=== PATIENT | male | born 1950 | race Caucasian/White ===

== ENCOUNTER → 2016-10-24 | Outpatient (CLI) | payer BC ==
[~2016-10-24] MED LIST: CIPR500T89 PO; OXYCO5TA PO; TYLE325T5 PO; no medications
== END ==
LOC: M WUC 16:07
PROVIDERS: ATTEND Urology
DX: C61 Malignant neoplasm of prostate (principal)

== ENCOUNTER → 2017-02-09 | Outpatient (CLI) | payer BC ==
[~2017-02-09] MED LIST changes: +OXYC-517 PO; -OXYCO5TA PO
== END ==
LOC: M WUC 10:27
PROVIDERS: ATTEND Urology
DX: R97.21 Rising PSA following treatment for malignant neoplasm of prostate (principal)

== ENCOUNTER → 2017-02-24 | Outpatient (CLI) | payer BC ==
--- NOTE | 2017-02-27 08:22 | RADONC ---
RADIATION ONCOLOGY CONSULTATION NOTE DATE: 02/24/2017 CHART NUMBER: [id number]. DIAGNOSIS: Prostate state cancer. STAGE: III, [id number]. ECOG PERFORMANCE STATUS: Zero. CONSULTATION NOTE: Mr. Chaudhry is a very pleasant, 66-year-old white male with the diagnosis of a stage III, [id number] poorly differentiated Angelique score 9 (4-4) adenocarcinoma of the prostate who is presenting to us today for consultation regarding the possibilities of postoperative radiation therapy for biochemical recurrence. HISTORY OF PRESENT ILLNESS: The patient was in his usual state of health but was found to have an elevated PSA, which reached a level of 22.05 on 06/29/2015. On 09/04/2015, the patient underwent robotic-assisted transperitoneal radical prostatectomy. Pathology revealed a poorly differentiated, a [place] score 8 (4-4) adenocarcinoma of the prostate. The tumor extensively involved the left prostate and also the superior half of the right prostate. It extended into the basal muscles and diffusely involved the bilateral basal resection margins as well as the base of the bilateral seminal vesicles. Several lymph nodes were resected from both left and the right pelvis and were negative for metastatic disease. The patient's tumor was noted to have focal areas of Angelique score 5 plus 3 pattern. Staging at that time was a stage III, [id number]. The patient was observed and initially had a PSA of 0.06 on 01/08/2016. This has been slowly rising, and on 02/09/2017 reached a level of 0.26. He is now being referred for consideration of postoperative radiation therapy. PAST MEDICAL HISTORY: The patient's past medical history is noncontributory. He has been in generally good health. ALLERGIES: The patient has NO KNOWN DRUG ALLERGIES. SOCIAL HISTORY: The patient does not smoke cigarettes nor abuse alcohol. FAMILY HISTORY: The patient's family history is positive for a brother with prostate cancer. REVIEW OF SYSTEMS: The patient's review of systems is noncontributory. Denies nausea, vomiting, fevers, chills, night sweats, diplopia, headaches, anxiety or depression, anorexia, weight loss, visual disturbances, chest pain, urinary or bowel difficulties, bone pain, or neurological problems. PHYSICAL EXAMINATION: The patient is a well-developed, well-nourished male in no acute distress. HEENT exam is normocephalic, atraumatic. Extraocular movements are intact. There is no palpable cervical, supraclavicular, infraclavicular, axillary, or inguinal lymphadenopathy present. Lungs are clear to auscultation and percussion. Heart has a regular rate and rhythm. Abdomen is benign with no hepatosplenomegaly, masses, or tenderness. Rectal examination reveals a normal anal sphincter tone. His prostate bed is smooth with no evidence of nodularity. Skeletal examination reveals no tenderness to pressure or percussion of the bony skeleton. Extremities reveal no clubbing, cyanosis, or edema. Neurologic exam is grossly intact, as is the remainder of the physical examination. IMAGING: I have personally reviewed the CT scan done 08/13/2015, which showed no evidence of lymphadenopathy. In addition, I have reviewed the bone scan done 08/13/2015, which showed no evidence of metastatic disease. ASSESSMENT: Clearly the patient is a candidate for external beam radiation therapy and I have so informed him. I have discussed with the patient in detail the potential benefits as well as possible acute and chronic sequelae of external beam radiation therapy. We discussed logistics of treatment planning, simulation and subsequent fractionated daily radiation treatments. I have scheduled the patient for the next available simulation slot and radiation treatments will begin subsequently. Thank you for allowing us to participate in the care of this very pleasant gentleman. If I could be of any further assistance or provide you with any information, please free to contact me anytime. As always, warm regards. cc: James Christina Jr, MD Alejandro Rodriguez, MD
== END ==
LOC: M ONCR 09:55
PROVIDERS: ATTEND Radiology Radiation Oncology
DX: C61 Malignant neoplasm of prostate (principal)

== ENCOUNTER 2017-03-05 11:39 | Outpatient (RCR) | payer BC ==
--- NOTE | 2017-03-17 10:16 | RADONC ---
RADIATION ONCOLOGY PROGRESS NOTE: DATE: 03/17/2017 CHART NO: [id number] Mr. Chaudhry underwent his first fraction of 180 cGy today to his prostate bed and tolerated it quite well. The patient has no new complaints prior to reinitiation of radiation. REVIEW OF SYSTEMS: The patient's review of systems is noncontributory. He denies nausea, vomiting, fevers, chills, night sweats, diplopia, headaches, anxiety or depression, anorexia, weight loss, visual disturbances, chest pain, urinary or bowel difficulties, bone pain, or neurological problems. PHYSICAL EXAMINATION: The patient's skin clearly shows no evidence of radiation change at this time. The remainder of his physical exam remains unchanged. Mr. Chaudhry tolerated his first fraction of radiation quite well with no difficulties. Radiation will continue as scheduled.
== END 2017-03-18 ==
LOC: M ONCR 11:39
PROVIDERS: ATTEND Radiology Radiation Oncology
DX: C61 Malignant neoplasm of prostate (principal)

== ENCOUNTER → 2017-03-05 | Outpatient (CLI) | payer BC ==
[2017-03-05 11:37] LABS: MEAN CORPUSCULAR HEMOGLOBIN 33.7 pg (27.0-33.0); MEAN CORPUSCULAR HGB CONC 35.3 g/dl (32.0-36.5); MEAN CORPUSCULAR VOLUME 95.6 fl (80.0-96.0); RED CELL DISTRIBUTION WIDTH 11.9 % (11.5-14.5); WHITE BLOOD COUNT 5.7 K/mm3 (4.0-10.0)
== END ==
LOC: M RAD 10:26
PROVIDERS: ATTEND Radiology Radiation Oncology
DX: C61 Malignant neoplasm of prostate (principal)

== ENCOUNTER 2017-03-19 11:08 | Outpatient (RCR) | payer BC ==
[~2017-03-19 11:08] MED LIST changes: +CIPR-249 PO; -CIPR500T89 PO
--- NOTE | 2017-03-24 13:29 | RADONC ---
RADIATION ONCOLOGY PROGRESS NOTE DATE: 03/24/2017 CHART NUMBER: [id number] Mr. Chaudhry is presently at a dose of 1080 cGy to his prostate bed and is tolerating treatments quite well at this point with no complaints related to his radiation therapy. He is having no urinary or bowel difficulties and no bone pain. The patient's review of systems is noncontributory. He denies nausea, vomiting, fevers, chills, night sweats, diplopia, headaches, anxiety or depression, anorexia, weight loss, visual disturbances, chest pain, urinary or bowel difficulties, bone pain, or neurological problems. PHYSICAL EXAMINATION: The patient's skin is in good condition with no evidence of radiation change present. There is no moist or dry desquamation. The remainder of his physical exam remains unchanged. Mr. Chaudhry is tolerating treatments quite well and radiation will continue as scheduled.
--- NOTE | 2017-03-30 09:03 | RADONC ---
RADIATION ONCOLOGY PROGRESS NOTE: DATE: 03/30/2017 CHART NUMBER: [id number]. PROGRESS NOTE: Mr. Chaudhry is presently at a dose of 1800 cGy to his prostate bed and is tolerating treatments quite well at this point with no complaints related to his radiation therapy. He is having no urinary or bowel difficulties and no bone pain. REVIEW OF SYSTEMS: The patient's review of systems is noncontributory. Denies nausea, vomiting, fevers, chills, night sweats, diplopia, headaches, anxiety or depression, anorexia, weight loss, visual disturbances, chest pain, urinary or bowel difficulties, bone pain, or neurological problems. PHYSICAL EXAMINATION: The patient's skin is in excellent condition with no evidence of radiation change present. There is no moist or dry desquamation. The remainder of his physical exam remains unchanged. Mr. Chaudhry is tolerating treatments quite well and radiation will continue as scheduled.
--- NOTE | 2017-04-06 09:31 | RADONC ---
RADIATION ONCOLOGY PROGRESS NOTE DATE: 04/06/2017 CHART NUMBER: [id number] Mr. Chaudhry is presently at a dose of 2700 cGy to his prostate bed and is tolerating treatments quite well at this point with no complaints related to his radiation therapy. He is having no urinary or bowel difficulties and no bone pain. The patient's review of systems is noncontributory. He denies nausea, vomiting, fevers, chills, night sweats, diplopia, headaches, anxiety or depression, anorexia, weight loss, visual disturbances, chest pain, urinary or bowel difficulties, bone pain, or neurological problems. PHYSICAL EXAMINATION: The patient's skin is in good condition with no evidence of radiation change present. There is no moist or dry desquamation. The remainder of his physical exam remains unchanged. Mr. Chaudhry is tolerating treatments quite well and radiation will continue as scheduled.
--- NOTE | 2017-04-13 12:15 | RADONC ---
RADIATION ONCOLOGY PROGRESS NOTE: DATE: 04/13/2017 CHART NUMBER: [id number]. PROGRESS NOTE: Mr. Chaudhry is presently at a dose of 3600 cGy to his prostate bed and is tolerating treatments quite well at this point with no complaints related to his radiation therapy. He is having no urinary or bowel difficulties and no bone pain. REVIEW OF SYSTEMS: The patient's review of systems is noncontributory. Denies nausea, vomiting, fevers, chills, night sweats, diplopia, headaches, anxiety or depression, anorexia, weight loss, visual disturbances, chest pain, urinary or bowel difficulties, bone pain, or neurological problems. PHYSICAL EXAMINATION: The patient's skin is in good condition with no evidence of radiation change present. There is no moist or dry desquamation. The remainder of his physical exam remains unchanged. Mr. Chaudhry is tolerating treatments quite well and radiation will continue as scheduled.
== END 2017-04-17 ==
LOC: M ONCR 11:08
PROVIDERS: ATTEND Radiology Radiation Oncology
DX: C61 Malignant neoplasm of prostate (principal)

== ENCOUNTER 2017-04-22 10:03 | Outpatient (RCR) | payer BC ==
--- NOTE | 2017-04-24 10:42 | RADONC ---
RADIATION ONCOLOGY PROGRESS NOTE DATE: 04/22/2017 CHART NUMBER: [id number]. Mr. Chaudhry is presently a dose of 4500 centigrade to his prostate bed and is tolerating treatments quite well at this point with no complaints related to his radiation therapy. He is having no significant urinary or bowel difficulties. No bone pain. REVIEW OF SYSTEMS: The patient's review of systems is noncontributory. Denies nausea, vomiting, fevers, chills, night sweats, diplopia, headaches, anxiety or depression, anorexia, weight loss, visual disturbances, chest pain, urinary or bowel difficulties, bone pain, or neurological problems. PHYSICAL EXAMINATION: The patient's skin is in good condition with no evidence of moist or dry desquamation. The remainder of his physical exam remains unchanged. Mr. Chaudhry is tolerating treatments quite well and radiation will continue as scheduled.
--- NOTE | 2017-04-27 09:02 | RADONC ---
RADIATION ONCOLOGY PROGRESS NOTE DATE: 04/27/2017 CHART NUMBER: [id number] Mr. Chaudhry is presently at a dose of 5040 centigrade to his prostate bed and is tolerating treatments quite well at this point with no complaints related to his radiation therapy. He is having no urinary or bowel difficulties. No bone pain. REVIEW OF SYSTEMS: The patient's review of systems is noncontributory. Denies nausea, vomiting, fevers, chills, night sweats, diplopia, headaches, anxiety or depression, anorexia, weight loss, visual disturbances, chest pain, urinary or bowel difficulties, bone pain, or neurological problems. PHYSICAL EXAMINATION: The patient's skin is in excellent condition with no evidence of moist or dry desquamation. The remainder of his physical exam remains unchanged. Radiation is presently well tolerated and will continue as scheduled.
--- NOTE | 2017-05-04 08:45 | RADONC ---
RADIATION ONCOLOGY PROGRESS NOTE DATE: 05/04/2017 CHART NUMBER: [id number]. Mr. Chaudhry is presently at a dose of 5940 centigrade to his prostate bed and is tolerating treatments quite well at this point with no complaints related to his radiation therapy. He is having no urinary or bowel difficulties and no bone pain. REVIEW OF SYSTEMS: The patient's review of systems is noncontributory. Denies nausea, vomiting, fevers, chills, night sweats, diplopia, headaches, anxiety or depression, anorexia, weight loss, visual disturbances, chest pain, urinary or bowel difficulties, bone pain, or neurological problems. PHYSICAL EXAMINATION: The patient's skin is in good condition with no evidence of moist or dry desquamation. The remainder of his physical exam remains unchanged. Mr. Chaudhry is tolerating his treatments quite well and radiation will continue as scheduled.
--- NOTE | 2017-05-08 10:42 | RADONC ---
RADIATION ONCOLOGY TREATMENT SUMMARY: DATE: 05/07/2017 CHART NUMBER: [id number]. DIAGNOSIS: Prostate cancer. STAGE: III, [id number]. ECOG PERFORMANCE STATUS: Zero. TREATMENT SUMMARY: Mr. Chaudhry is a very pleasant, 66-year-old white male with the diagnosis of a stage III, [id number] poorly differentiated [place] score 8 (4-4) adenocarcinoma of the prostate who presented to us status post prostatectomy with biochemical recurrence for consideration of postoperative radiation therapy. We treated the patient to his prostate bed for a dose of 6660 cGy delivered in 37 fractions of 180 cGy each over 52 elapsed days, from 03/17/2017 through 05/08/2017. The patient's prostate bed was treated on the linear accelerator utilizing an 18 MV photon beam. We initially treated a larger area to a dose of 4500 cGy and subsequently coned down for the final 2160 cGy once again in order to bring the prostate bed to a total dose of 6660 cGy. Mr. Chaudhry tolerated his treatments quite well and was able complete therapy as prescribed without interruption. I have scheduled the patient to see me again in 1 month for further followup. He will also continue to be followed by his other physicians as well. cc: James Christina Jr, MD Alejandro Rodriguez, MD
== END 2017-05-18 ==
LOC: M ONCR 10:03
PROVIDERS: ATTEND Radiology Radiation Oncology
DX: C61 Malignant neoplasm of prostate (principal)

== ENCOUNTER → 2017-06-04 | Outpatient (CLI) | payer BC | LOC: M WUC 16:02 | PROVIDERS: ATTEND Urology | DX: C61 Malignant neoplasm of prostate (principal) ==

== ENCOUNTER → 2017-06-17 | Outpatient (CLI) | payer BC ==
--- NOTE | 2017-06-17 12:16 | RADONC ---
RADIATION ONCOLOGY FOLLOWUP NOTE DATE: 06/17/2017 CHART NUMBER: [id number] DIAGNOSIS: Prostate cancer stage III, [id number]. ECOG PERFORMANCE STATUS: 0. FOLLOWUP NOTE: Mr. Valenzuela is a very pleasant 67-year-old white male with the diagnosis a stage III, [id number], poorly differentiated [place] score 8 (4-4) adenocarcinoma of the prostate who is presenting to us today for routine followup visit 1 month post completion of external beam radiation therapy. The patient presents today reporting that he is doing quite well with no complaints at this time related to his radiation therapy or disease. He has no urinary or bowel difficulties. No bone pain. REVIEW OF SYSTEMS: The patient's review of systems is noncontributory. Denies nausea, vomiting, fevers, chills, night sweats, diplopia, headaches, anxiety or depression, anorexia, weight loss, visual disturbances, chest pain, urinary or bowel difficulties, bone pain, or neurological problems. PHYSICAL EXAMINATION: The patient is a well-developed, well-nourished male in no acute distress. HEENT exam is normocephalic, atraumatic. Extraocular movements are intact. There is no palpable cervical, supraclavicular, infraclavicular, axillary, or inguinal lymphadenopathy present. Lungs are clear to auscultation and percussion. Heart has a regular rate and rhythm. Abdomen is benign with no hepatosplenomegaly, masses, or tenderness. Rectal examination reveals a normal anal sphincter tone. His prostate bed is smooth without evidence of nodularity or recurrent disease. Skeletal examination reveals no tenderness to pressure or percussion of the bony skeleton. Extremities reveal no clubbing, cyanosis, or edema. Neurologic exam is grossly intact, as is the remainder of the physical examination. ASSESSMENT: The patient is clinically PATRICE at this time and will be seen by us again in 1 month for further followup. He will also continue to be followed by his other physicians as well. cc: James Christina Jr, MD Alejandro Rodriguez, MD
== END ==
LOC: M ONCR 11:34
PROVIDERS: ATTEND Radiology Radiation Oncology
DX: C61 Malignant neoplasm of prostate (principal)

== ENCOUNTER → 2017-09-11 | Outpatient (CLI) | payer BC | LOC: M WUC 09:30 | PROVIDERS: ATTEND Urology | DX: Z85.46 Personal history of malignant neoplasm of prostate (principal) ==

== ENCOUNTER → 2018-03-05 | Outpatient (CLI) | payer MEDICARE ==
[2018-03-05 17:01] LABS: PROSTATIC SPECIFIC AG MONITOR < 0.01 NG/ML (< 4.0)
== END ==
LOC: M WUC 14:00
DX: C61 Malignant neoplasm of prostate (principal)
CPT/HCPCS: 84153

== ENCOUNTER → 2018-03-10 | Outpatient (CLI) | payer MEDICARE | LOC: M ONCR 10:40 | DX: C61 Malignant neoplasm of prostate (principal) | CPT/HCPCS: G0463 ==

== ENCOUNTER → 2018-09-06 | Outpatient (CLI) | payer MEDICARE ==
[2018-09-06 13:26] LABS: PROSTATIC SPECIFIC AG MONITOR < 0.0 NG/ML (< 4.0)
== END ==
LOC: M WUC 10:34
DX: Z85.46 Personal history of malignant neoplasm of prostate (principal)
CPT/HCPCS: 84153

== ENCOUNTER → 2018-09-08 | Outpatient (CLI) | payer MEDICARE | LOC: M ONCR 09:27 | DX: C61 Malignant neoplasm of prostate (principal) | CPT/HCPCS: G0463 ==

== ENCOUNTER → 2019-03-08 | Outpatient (CLI) | payer MEDICARE | LOC: M WUC 10:25 | PROVIDERS: ATTEND Nurse Practitioner Women's Health | DX: Z85.46 Personal history of malignant neoplasm of prostate (principal) ==

== ENCOUNTER → 2019-09-13 | Outpatient (CLI) | payer MEDICARE | LOC: M WUC 09:11 | PROVIDERS: ATTEND Nurse Practitioner Women's Health | DX: Z85.46 Personal history of malignant neoplasm of prostate (principal) ==

== ENCOUNTER → 2020-03-19 | Outpatient (CLI) | payer MEDICARE ==
[~2020-03-19] MED LIST changes: +PRIM50TA6 PO
== END ==
LOC: M WUC 09:26
PROVIDERS: ATTEND Nurse Practitioner Women's Health
DX: Z85.46 Personal history of malignant neoplasm of prostate (principal)

== ENCOUNTER → 2020-03-23 | Outpatient (REF) | payer MEDICARE ==
[2020-03-23 19:04] LABS: AMORPHOUS SEDIMENT LARGE (NEGATIVE); APPEARANCE, URINE TURBID (CLEAR); BACTERIA, URINE AUTO NEGATIVE (NEGATIVE); BILIRUBIN, URINE AUTO NEGATIVE (NEGATIVE); BLOOD, URINE BLOOD NEGATIVE (NEGATIVE); COLOR, URINE AMBER (YELLOW); GLUCOSE, URINE (UA) AUTO NEGATIVE (NEGATIVE); KETONE, URINE AUTO NEGATIVE (NEGATIVE); LEUKOCYTE ESTERASE, URINE AUTO NEGATIVE (NEGATIVE); NITRITE, URINE AUTO NEGATIVE (NEGATIVE); PROTEIN, URINE AUTO NEGATIVE (NEGATIVE); RBC, URINE AUTO 2 /HPF (0-3); SPECIFIC GRAVITY URINE AUTO 1.025 (1.002-1.035); SQUAMOUS EPITHELIAL CELL UR AU 0 /HPF (0-6); UROBILINOGEN, URINE AUTO 0.2 mg/dL (0.0-2.0); WBC, URINE AUTO 2 /HPF (0-3)
== END ==
LOC: M SMT 18:05
PROVIDERS: ATTEND Nurse Practitioner Women's Health
DX: R33.9 Retention of urine, unspecified (principal)
CPT/HCPCS: 51798; 81001; 87086; G0463

== ENCOUNTER 2020-03-25 07:08 | Emergency (ER) | payer MEDICARE ==
[~2020-03-25] VITALS: Ht 172.7 cm; Wt 90.7 kg
[~2020-03-25 07:08] MED LIST changes: -PRIM50TA6 PO
[2020-03-25] MEDS ORDERED: PRIM50TA6 PO (07:17)
[2020-03-25] MEDS ORDERED: LIDOCAINE 2% 5ML JELLY UROJET TOP ONE (08:00)
[2020-03-25 08:23] LABS: BASO % 0.7 % (0.0-1.0); EOS # 0.1 10^3/uL (0.0-0.5); EOS % 1.1 % (0.0-3.0); HEMATOCRIT 46.1 % (42.0-52.0); HEMOGLOBIN 16.1 g/dl (13.5-17.5); LYMPH % 18.3 % (24.0-44.0); MEAN CORPUSCULAR HEMOGLOBIN 34.3 pg (27.0-33.0); MEAN CORPUSCULAR HGB CONC 34.9 g/dl (32.0-36.5); MEAN CORPUSCULAR VOLUME 98.3 fl (80.0-96.0); MONO # 0.6 10^3/uL (0.0-0.8); MONO % 10.5 % (0.0-5.0); NEUTROPHILS # 3.7 10^3/uL (1.5-8.5); NEUTROPHILS % 69.2 % (36.0-66.0); PLATELET COUNT, AUTOMATED 254 10^3/uL (150-450); RED BLOOD COUNT 4.69 10^6/uL (4.30-6.10); WHITE BLOOD COUNT 5.4 10^3/uL (4.0-10.0)
[2020-03-25 08:47] LABS: ALBUMIN 3.9 GM/DL (3.2-5.2); ALT/SGPT 34 U/L (12-78); BILIRUBIN,DIRECT 0.2 MG/DL (0.0-0.2); BILIRUBIN,TOTAL 0.9 MG/DL (0.2-1.0); BLOOD UREA NITROGEN 18 MG/DL (7-18); CALCIUM LEVEL 8.9 MG/DL (8.8-10.2); CARBON DIOXIDE LEVEL 29 MEQ/L (21-32); CHLORIDE LEVEL 108 MEQ/L (98-107); CREATININE FOR GFR 0.81 MG/DL (0.70-1.30); GLOMERULAR FILTRATION RATE > 60.0 (>49); GLUCOSE, FASTING 108 MG/DL (70-100); LIPASE 107 U/L (73-393); POTASSIUM SERUM 4.1 MEQ/L (3.5-5.1); SODIUM LEVEL 142 MEQ/L (136-145); TOTAL PROTEIN 7.1 GM/DL (6.4-8.2)
[2020-03-25 08:52] LABS: BILIRUBIN, URINE MANUAL OBSCURED (NEGATIVE); GLUCOSE, URINE (UA) MANUAL NEGATIVE (NEGATIVE); KETONE, URINE MANUAL OBSCURED mg/dL (NEGATIVE); UROBILINOGEN, URINE MANUAL OBSCURED mg/dl (NORMAL)
[2020-03-25 08:53] LABS: AMORPHOUS SEDIMENT, URINE LARGE AMOUNT (NEGATIVE); BACTERIA, URINE SMALL AMOUNT; HYALINE CAST, URINE NONE SEEN /lpf (0-1); MUCUS, URINE SMALL AMOUNT (NEGATIVE); RBC, URINE TNTC /hpf (0-3); SQUAMOUS EPITHELIAL CELL URINE SMALL AMOUNT /hpf (SMALL AMT)
[2020-03-25 09:31] VITALS: BP 127/74
== END 2020-03-25 09:33 | disposition home or self-care (01) ==
LOC: M ED 07:08
DX: R33.9 Retention of urine, unspecified (principal); R31.9 Hematuria, unspecified; Z85.46 Personal history of malignant neoplasm of prostate; Z79.899 Other long term (current) drug therapy

== ENCOUNTER 2020-03-25 19:38 | Emergency (ER) | payer MEDICARE ==
[~2020-03-25] VITALS: Ht 172.7 cm; Wt 88.6 kg
[~2020-03-25 19:38] MED LIST changes: +PRIM50TA6 PO
[2020-03-25 22:04] VITALS: BP 140/84
== END 2020-03-25 22:11 | disposition home or self-care (01) ==
LOC: M ED 19:38
DX: T83.091A Other mechanical complication of indwelling urethral catheter, initial encounter (principal); Z85.46 Personal history of malignant neoplasm of prostate; Z90.79 Acquired absence of other genital organ(s); Z79.899 Other long term (current) drug therapy

== ENCOUNTER → 2020-04-11 | Outpatient (REF) | payer MEDICARE ==
[2020-04-11 16:14] LABS: APPEARANCE, URINE TURBID (CLEAR); BACTERIA, URINE AUTO NEGATIVE (NEGATIVE); BILIRUBIN, URINE AUTO NEGATIVE (NEGATIVE); BLOOD, URINE BLOOD NEGATIVE (NEGATIVE); CALCIUM OXALATE CRYSTALS SMALL; COLOR, URINE AMBER (YELLOW); GLUCOSE, URINE (UA) AUTO NEGATIVE (NEGATIVE); KETONE, URINE AUTO NEGATIVE (NEGATIVE); LEUKOCYTE ESTERASE, URINE AUTO NEGATIVE (NEGATIVE); NITRITE, URINE AUTO NEGATIVE (NEGATIVE); PROTEIN, URINE AUTO NEGATIVE (NEGATIVE); RBC, URINE AUTO 2 /HPF (0-3); SPECIFIC GRAVITY URINE AUTO 1.025 (1.002-1.035); SQUAMOUS EPITHELIAL CELL UR AU 0 /HPF (0-6); UROBILINOGEN, URINE AUTO 0.2 mg/dL (0.0-2.0); WBC, URINE AUTO 0 /HPF (0-3)
== END ==
LOC: M SMT 14:57
PROVIDERS: ATTEND Nurse Practitioner Women's Health
DX: R31.0 Gross hematuria (principal)
CPT/HCPCS: 81001; 87086; G0463

== ENCOUNTER → 2020-09-17 | Outpatient (CLI) | payer MEDICARE | LOC: M WUC 10:52 | PROVIDERS: ATTEND Nurse Practitioner Women's Health | DX: Z85.46 Personal history of malignant neoplasm of prostate (principal) ==

== ENCOUNTER → 2021-09-16 | Outpatient (CLI) | payer MEDICARE | LOC: M WUC 08:41 | PROVIDERS: ATTEND Nurse Practitioner Women's Health | DX: Z85.46 Personal history of malignant neoplasm of prostate (principal) ==

== ENCOUNTER → 2022-09-24 | Outpatient (CLI) | payer MEDICARE | LOC: M WUC 10:38 | PROVIDERS: ATTEND Nurse Practitioner Women's Health | DX: Z85.46 Personal history of malignant neoplasm of prostate (principal) ==

== ENCOUNTER → 2023-09-24 | Outpatient (REF) | payer MEDICARE | LOC: M WUC 12:09 | PROVIDERS: ATTEND Nurse Practitioner Women's Health | DX: Z85.46 Personal history of malignant neoplasm of prostate (principal) ==

== ENCOUNTER → 2024-10-10 | Outpatient (CLI) | payer MEDICARE | LOC: M WUC 09:35 | PROVIDERS: ATTEND Physician Assistant | DX: Z85.46 Personal history of malignant neoplasm of prostate (principal) ==

== ENCOUNTER → 2024-10-27 | Outpatient (REF) | payer MEDICARE ==
[2024-10-27 14:33] LABS: BASO # 0.1 10^3/uL (0.0-0.2); BASO % 1.1 % (0.0-1.0); EOS # 0.1 10^3/uL (0.0-0.5); EOS % 1.3 % (0.0-3.0); HEMATOCRIT 46.9 % (42.0-52.0); HEMOGLOBIN 15.8 g/dl (13.5-17.5); LYMPH # 1.8 10^3/uL (1.5-5.0); LYMPH % 32.5 % (24.0-44.0); MEAN CORPUSCULAR HGB CONC 33.7 g/dl (32.0-36.5); MEAN CORPUSCULAR VOLUME 100.9 fl (80.0-96.0); MONO # 0.5 10^3/uL (0.0-0.8); MONO % 9.9 % (2.0-8.0); NEUTROPHILS % 54.8 % (36.0-66.0); PLATELET COUNT, AUTOMATED 286 10^3/uL (150-450); RED BLOOD COUNT 4.65 10^6/uL (4.30-6.10); WHITE BLOOD COUNT 5.5 10^3/uL (4.0-10.0)
[2024-10-31 11:53] LABS: ERYTHROPOIETIN 27.6 mIU/mL (2.6-18.5)
[2024-11-02 14:11] LABS: JAK2 MUTATIONS FOR PATH SENDOU See Pathology Report
== END ==
LOC: M LAB REF 13:44
PROVIDERS: ATTEND Internal Medicine
DX: D75.89 Other specified diseases of blood and blood-forming organs (principal); D75.1 Secondary polycythemia

== ENCOUNTER 2025-06-16 19:20 | Emergency (ER) | payer MEDICARE ==
[~2025-06-16] VITALS: Ht 172.7 cm; Wt 84.1 kg
[~2025-06-16 19:20] MED LIST changes: -LEVO1TAB40 PO; -OXYB5TAB14 PO
[2025-06-16 21:37] LABS: KETONE, URINE MANUAL REFLEX OBSCURED mg/dL (NEGATIVE); PROTEIN, URINE MANUAL REFLEX OBSCURED mg/dL (NEGATIVE); SP GRAVITY,URINE MANUAL REFLEX 1.015 (1.002-1.035); UROBILINOGEN, UA MANUAL REFLEX 4 MG mg/dl (NORMAL)
[2025-06-16 21:38] LABS: NITRITE, URINE MANUAL RFX OBSCURED (NEGATIVE)
[2025-06-16 21:50] LABS: HYALINE CAST, URINE RFX NONE SEEN /lpf (0-1); MICROSCOPIC EXAM RFX PERFORMED; RBC, URINE MAN REFLEX 0-1 /hpf (0-3); SQUAMOUS EPITHELIAL URINE RFX SMALL AMOUNT /hpf (SMALL AMT)
[2025-06-16 22:28] LABS: BASO # 0.0 10^3/uL (0.0-0.2); BASO % 0.4 % (0.0-1.0); EOS # 0.1 10^3/uL (0.0-0.5); EOS % 0.4 % (0.0-3.0); LYMPH # 1.0 10^3/uL (1.5-5.0); LYMPH % 8.5 % (24.0-44.0); MONO # 0.8 10^3/uL (0.0-0.8); MONO % 6.8 % (2.0-8.0); NEUTROPHILS # 9.4 10^3/uL (1.5-8.5); NEUTROPHILS % 83.7 % (36.0-66.0); PLATELET COUNT, AUTOMATED 255 10^3/uL (150-450)
[2025-06-16 23:07] LABS: ALT/SGPT 20 U/L (7.0-40); AST/SGOT 27 U/L (<34); CALCIUM LEVEL 9.0 MG/DL (8.3-10.6); CARBON DIOXIDE LEVEL 28 MMOL/L (20-31); CHLORIDE LEVEL 102 MMOL/L (98-107); CREATININE FOR GFR 0.79 MG/DL (0.70-1.30); GLOMERULAR FILTRATION RATE > 90.0 (>42); POTASSIUM SERUM 4.5 MMOL/L (3.5-5.1); SODIUM LEVEL 141 MMOL/L (136-145)
[2025-06-17] VITALS: BP 140/67; TEMP 97.5; O2SAT 97
[2025-06-17] MEDS ORDERED: LEVO1TAB40 PO
[2025-06-17] MEDS ORDERED: OXYB5TAB14 PO
== END 2025-06-17 00:41 | disposition home or self-care (01) ==
LOC: M ED 19:20
DX: N39.0 Urinary tract infection, site not specified (principal); N32.89 Other specified disorders of bladder; Z85.46 Personal history of malignant neoplasm of prostate; Z79.899 Other long term (current) drug therapy; R30.0 Dysuria

== ENCOUNTER → 2025-06-16 | Outpatient (REF) | payer MEDICARE ==
[~2025-06-16] MED LIST changes: +LEVO1TAB40 PO; +OXYB5TAB14 PO
== END ==
LOC: M LAB REF 12:27
PROVIDERS: ATTEND Physician Assistant
DX: R30.0 Dysuria (principal)

== ENCOUNTER → 2025-10-09 | Outpatient (CLI) | payer MEDICARE ==
[~2025-10-09] MED LIST changes: +LEVO1TAB40 PO; +OXYB5TAB14 PO
== END ==
LOC: M WUC 09:23
PROVIDERS: ATTEND Physician Assistant
DX: Z85.46 Personal history of malignant neoplasm of prostate (principal)